=== PATIENT | female | born 1950 | race African-American/Black ===

== ENCOUNTER → 2017-04-19 | Outpatient (CLI) | payer MEDICARE ==
--- NOTE | 2017-04-19 12:16 | BD ---
EXAMINATION TYPE: MG DEXA axial skeleton. DATE OF EXAM: 04/19/2017 COMPARISON: NONE CLINICAL HISTORY: Postmenopausal female. Osteoporosis screening. Height: 5'1 Weight: 140 FRAX RISK QUESTIONS: Alcohol (3 or more units per day): no Family History (Parent hip fracture): no Glucocorticoids (More than 3mos): no (Ex: prednisone, prednisolone, methylprednisolone, dexamethasone, and hydrocortisone). History of Fracture in Adulthood: no Secondary Osteoporosis: 1. Type 1 Diabetes: no 2. Hyperthyroidism: no 3. Menopause before 45: no 4. Malnutrition: no 5. Chronic liver disease: no Rheumatoid Arthritis: no Current Tobacco Use: no RISK FACTORS HISTORY OF: Postmenopausal woman: MEDICATIONS: Additional Medications: cholesterol Additional History: EXAM MEASUREMENTS: Bone mineral densitometry was performed using the [employer] System. Bone mineral density as measured about the Lumbar spine is: ----- L1-L4(G/cm2): 1.030 T Score Values are as follows: ----- L2: -1.9 ----- L3: -1.4 ----- L4: -1.1 ----- L1-L4:-1.7 Bone mineral density about the R hip (g/cm2): 1.031 Bone mineral density about the L hip (g/cm2): 1.007 T Score values are as follows: -----R Neck: 0.0 -----L Neck: -0.2 -----R Total: 0.1 -----L Total: 0.3 IMPRESSION: Normal (Values between +1 and -1 indicate normal bone mass). Consider repeating this study in 5 year s or sooner if there is some new clinical indication. NOTE: T-SCORE=SD OF THE YOUNG ADULT MEAN.
--- NOTE | 2017-04-20 12:08 | MM ---
Reason for exam: screening (asymptomatic). History: Patient is postmenopausal. Benign excisional biopsy of the right breast, 2016. Took estrogen for 2 years. Physical Findings: A clinical breast exam by your physician is recommended on an annual basis and results should be correlated with mammographic findings. MG 3D Screening Mammo W/Cad Bilateral CC and MLO view(s) were taken. There are scattered fibroglandular densities. Previous mammotome biopsy in the right breast. There is no discrete abnormality. ASSESSMENT: Benign, BI-RAD 2 RECOMMENDATION: Routine screening mammogram of both breasts in 1 year.
== END | disposition home or self-care (01) ==
LOC: RADMAMWWP 07:23
PROVIDERS: ATTEND Family Medicine
DX: Z12.31 Encounter for screening mammogram for malignant neoplasm of breast (principal); Z78.0 Asymptomatic menopausal state
CPT/HCPCS: 77063; 77067; 77080

== ENCOUNTER → 2019-01-25 | Outpatient (CLI) | payer MEDICARE ==
--- NOTE | 2019-01-26 15:02 | US ---
EXAMINATION TYPE: US carotid duplex BILAT DATE OF EXAM: 01/25/2019 COMPARISON: NONE CLINICAL HISTORY: R09.89 carotid bruit. Pt states physician heard possible bruit EXAM MEASUREMENTS: RIGHT: Peak Systolic Velocity (PSV) cm/sec ----- Right CCA: 100.7 ----- Right ICA: 116.0 ----- Right ECA: 109.5 ICA/CCA ratio: 1.2 RIGHT: End Diastole cm/sec ----- Right CCA: 22.6 ----- Right ICA: 46.1 ----- Right ECA: 22.8 LEFT: Peak Systolic Velocity (PSV) cm/sec ----- Left CCA: 87.5 ----- Left ICA: 78.7 ----- Left ECA: 96.3 ICA/CCA ratio: 0.9 LEFT: End Diastole cm/sec ----- Left CCA: 22.6 ----- Left ICA: 31.4 ----- Left ECA: 13.8 VERTEBRALS (direction of flow): Right Vertebral: Antegrade Left Vertebral: Antegrade Rhythm: Normal No significant stenosis seen IMPRESSION: Mild degree of grayscale atheromatous plaquing with no sonographically evident hemodynam ically significant stenosis within either visualized carotid arterial system. Criteria for Assigning % of Stenosis / Diameter reduction (Estimation based on the indirect measurements of the internal carotid artery velocities (ICA PSV). 1. Normal (no stenosis)=ICA PSV < 125 cm/s: ratio < 2.0: ICA EDV<40 cm/s. 2. Less than 50% stenosis=ICA PSV < 125 cm/s: ratio < 2.0: ICA EDV<40 cm/s. 3. 50 to 69% stenosis=ICA PSV of 125 to 230 cm/s: ration 2.0 ? 4.0: ICA EDV 40-100 cm/s. 4. Greater than 70% stenosis to near occlusion= ICA PSV > 230 cm/s: ratio > 4.0: ICA EDV > 100 cm/s. 5. Near occlusion= ICA PSV velocities may be low or undetectable: variable ratio and ICA EDV. 6. Total occlusion=unable to detect flow.
== END | disposition home or self-care (01) ==
LOC: RADUSWWP 16:50
PROVIDERS: ATTEND Family Medicine
DX: R09.89 Other specified symptoms and signs involving the circulatory and respiratory systems (principal)
CPT/HCPCS: 93880

== ENCOUNTER → 2020-06-01 | Outpatient (CLI) | payer MEDICARE ==
--- NOTE | 2020-06-01 10:32 | P.STRESS ---
- Stress Test Note Stress Test Results/Findings: Exam Performed: stress echo exercise Exam Date: 06/01/20 Reason for Exam: Abnormal EKG Height: 5 ft 2 in Weight: 147 kg Protocol: Rai Stage: III Duration of Exercise: 7:09 Resting Heart Rate: 74 Resting Blood Pressure: 124/73 Maximum Achieved Heart Rate: 156 Maximum Achieved Blood Pressure: 194/70 85% PMHR: 128 100% PMHR: 151 METS: Technologist Comment: Stress Test Results/Findings: This is a 69-year-old female being evaluated for cardiac status. Because of abnormal EKG patient also has diabetes and hypercholesterolemia. Stress data: Baseline EKG showed sinus rhythm with normal TX interval and QRS duration with occasional PVCs. Blood pressure at rest is 124/73 with pulse rate of 74. Patient walked on the Rai protocol for 7 minutes achieving a maximal heart rate of 156 with a blood pressure of 1 9470. EKGs taken during and after exercise did not reveal any significant changes from the baseline. He she did not experience any chest pain. Echo data: Baseline echo images showed normal wall motion and thickening. Exercise echo images showed augmentation of wall motion and thickening in all the segments. Final impression: #1. Negative stress test #2. Negative stress echo.
--- NOTE | 2020-06-05 10:43 | ECHOF ---
Referral Reason:E78.5, R94.31, E11.9 MEASUREMENTS -------- HEIGHT: 157.5 cm WEIGHT: 66.7 kg BP: RVIDd: 2.9 cm (< 3.3) IVSd: 1.1 cm (0.6 - 1.1) LVIDd: 3.8 cm (3.9 - 5.3) LVPWd: 1.1 cm (0.6 - 1.1) IVSs: 1.7 cm LVIDs: 2.5 cm LVPWs: 1.6 cm LAESV Index (A-L): 16.56 ml/m Ao Diam: 3.0 cm (2.0 - 3.7) AV Cusp: 2.1 cm (1.5 - 2.6) LA Diam: 3.4 cm (2.7 - 3.8) MV EXCURSION: 13.117 mm (> 18.000) MV EF SLOPE: 40 mm/s (70 - 150) EPSS: 0.3 cm MV E Santhosh: 0.59 m/s MV DecT: 222 ms MV A Santhosh: 0.97 m/s MV E/A Ratio: 0.60 RAP: 5.00 mmHg RVSP: 26.50 mmHg FINDINGS -------- Sinus rhythm. This was a technically good study. The left ventricular size is normal. Left ventricular wall thickness is normal. Overall left vent ricular systolic function is normal with, an EF between 55 - 60 %. The diastolic filling pattern is normal for the age of the patient 14.87. The right ventricle is normal in size. Normal LA size by volume 22+/-6 ml/m2. The right atrial size is normal. Interatrial and interventricular septum intact. The aortic valve is trileaflet and appears structurally normal. There is no evidence of aortic regu rgitation. There is no evidence of aortic stenosis. No mitral regurgitation. Mild tricuspid regurgitation present. There is no evidence of pulmonary hypertension. The right v entricular systolic pressure, as measured by Doppler, is 26.50mmHg. There is no pulmonic regurgitation present. The aortic root size is normal. Normal inferior vena cava with normal inspiratory collapse consistent with estimated right atrial pre ssure of 5 mmHg. There is no pericardial effusion. CONCLUSIONS -------- 1. The left ventricular size is normal. 2. Left ventricular wall thickness is normal. 3. Overall left ventricular systolic function is normal with, an EF between 55 - 60 %. 4. The diastolic filling pattern is normal for the age of the patient 14.87 5. Mild tricuspid regurgitation present. SPECIALTY SALES CONSULTANT: Frances Keita RDCS
== END | disposition home or self-care (01) ==
LOC: RADECHMAIN 08:22
PROVIDERS: ATTEND Family Medicine
DX: R94.31 Abnormal electrocardiogram [ECG] [EKG] (principal)
CPT/HCPCS: 93306; 93351

== ENCOUNTER → 2021-01-12 | Outpatient (CLI) | payer MEDICARE ==
--- NOTE | 2021-01-14 14:09 | MM ---
Reason for exam: screening (asymptomatic). Last mammogram was performed 2 years and 7 months ago. History: Patient is postmenopausal. Benign excisional biopsy of the right breast, 2016. Took hormonal contraceptives for 4 years. Took estrogen for 2 years. Physical Findings: A clinical breast exam by your physician is recommended on an annual basis and results should be correlated with mammographic findings. MG 3D Screening Mammo W/Cad Bilateral CC and MLO view(s) were taken. Prior study comparison: June 04, 2018, bilateral MG 3d screening mammo w/cad. April 19, 2017, bilateral MG 3d screening mammo w/cad. There are scattered fibroglandular densities. Previous mammotome biopsy in the right breast. No significant changes when compared with prior studies. ASSESSMENT: Benign, BI-RAD 2 RECOMMENDATION: Routine screening mammogram of both breasts in 1 year.
== END | disposition home or self-care (01) ==
LOC: RADMAMWWP 10:56
PROVIDERS: ATTEND Family Medicine
DX: Z12.31 Encounter for screening mammogram for malignant neoplasm of breast (principal); Z78.0 Asymptomatic menopausal state
CPT/HCPCS: 77063; 77067

== ENCOUNTER → 2022-01-14 | Outpatient (CLI) | payer MEDICARE ==
--- NOTE | 2022-01-17 08:25 | MM ---
Reason for Exam: Screening (asymptomatic). Last screening mammogram was performed 12 month(s) ago. Patient History: Menarche at age 16. First Full-Term at age 19. Postmenopausal. Patient used Estrogen for 2 years. Patient used Hormonal Contraceptives for 4 years. 2016, Benign Excisional Biopsy on the right side. Maternal cousin had breast cancer. Risk Values: Tonie 5 year model risk: 1.4%. NCI Lifetime model risk: 3.8%. Prior Study Comparison: 04/19/2017 Bilateral Screening Mammogram, [facility]. 06/04/2018 Bilateral Screening Mammogram, [facility]. 01/12/2021 Bilateral Screening Mammogram, [facility]. Tissue Density: There are scattered fibroglandular densities. Findings: Analyzed By CAD. There is no suspicious group of microcalcifications or new suspicious mass in either breast. Previous mammotome biopsy in the right breast. No significant change from prior exams. Overall Assessment: Benign, BI-RAD 2 Management: Screening Mammogram of both breasts in 1 year. A clinical breast exam by your physician is recommended on an annual basis and results should be correlated with mammographic findings. Electronically signed and approved by: Maykel Pham D.O.
== END | disposition home or self-care (01) ==
LOC: RADMAMWWP 07:55
PROVIDERS: ATTEND Family Medicine
DX: Z12.31 Encounter for screening mammogram for malignant neoplasm of breast (principal); Z78.0 Asymptomatic menopausal state; Z80.3 Family history of malignant neoplasm of breast; Z98.890 Other specified postprocedural states
CPT/HCPCS: 77063; 77067

== ENCOUNTER → 2023-02-28 | Outpatient (CLI) | payer MEDICARE ==
--- NOTE | 2023-03-02 22:29 | MM ---
Reason for Exam: Screening (asymptomatic). Last mammogram was performed 1 year(s) and 1 month(s) ago. Patient History: Menarche at age 16. First Full-Term at age 19. Postmenopausal. Patient used Estrogen for 2 years. Patient used Hormonal Contraceptives for 4 years. 2016, Benign Excisional Biopsy on the right side. Maternal cousin had breast cancer. Risk Values: Tonie 5 year model risk: 1.4%. NCI Lifetime model risk: 3.6%. Prior Study Comparison: 06/04/2018 Bilateral Screening Mammogram, [facility]. 01/12/2021 Bilateral Screening Mammogram, [facility]. 01/14/2022 Bilateral MG 3D screening mammo w/cad, [facility]. Tissue Density: There are scattered fibroglandular densities. Findings: Analyzed By CAD. There is no suspicious group of microcalcifications or new suspicious mass in either breast. Overall Assessment: Negative, BI-RAD 1 Management: Screening Mammogram of both breasts in 1 year. . Patient should continue monthly self-breast exams. A clinical breast exam by your physician is recommended on an annual basis. This exam should not preclude additional follow-up of suspicious palpable abnormalities. Note on Tonie scores and lifetime risk: 1. A Tonie score greater than 3% is considered moderate risk. If this is the case, consider specialist referral to assess eligibility for a risk reducing agent. 2. If overall lifetime risk for the development of breast cancer is 20% or higher, the patient may qualify for future screening with alternating mammogram and breast MRI. Electronically signed and approved by: Janell Lilly M.D. Radiologist
== END | disposition home or self-care (01) ==
LOC: RADMAMWWP 15:57
PROVIDERS: ATTEND Family Medicine
DX: Z12.31 Encounter for screening mammogram for malignant neoplasm of breast (principal); Z78.0 Asymptomatic menopausal state; Z80.3 Family history of malignant neoplasm of breast
CPT/HCPCS: 77063; 77067

== ENCOUNTER → 2023-04-13 | Outpatient (CLI) | payer MEDICARE ==
--- NOTE | 2023-04-13 13:28 | XR ---
EXAMINATION TYPE: XR chest 2V DATE OF EXAM: 04/13/2023 10:32 AM CLINICAL INDICATION:Female, 72 years old with history of R63.4 abnormal weight loss; [facility] COMPARISON: Chest radiographs from 04/13/2023. TECHNIQUE: XR chest 2V Frontal and lateral views of the chest. FINDINGS: Lungs/Pleura: There is no evidence of pleural effusion, focal consolidation, or pneumothorax. Pulmonary vascularity: Unremarkable. Heart/mediastinum: Cardiomediastinal silhouette is unremarkable. Musculoskeletal: No acute osseous pathology. Other findings: None IMPRESSION: No acute cardiopulmonary disease/process.
== END | disposition home or self-care (01) ==
LOC: RADXRMAIN 10:16
PROVIDERS: ATTEND Family Medicine
DX: R63.4 Abnormal weight loss (principal)
CPT/HCPCS: 71046

== ENCOUNTER → 2024-04-11 | Outpatient (CLI) | payer MEDICARE ==
--- NOTE | 2024-04-11 08:17 | MM ---
Reason for Exam: Screening (asymptomatic). Last mammogram was performed 1 year(s) and 1 month(s) ago. Patient History: Menarche at age 16. First Full-Term at age 19. Postmenopausal. Patient used Estrogen for 2 years. Patient used Hormonal Contraceptives for 4 years. 2016, Benign Excisional Biopsy on the right side. Maternal cousin had breast cancer. Maternal cousin had breast cancer, age 45. Risk Values: Tonie 5 year model risk: 1.4%. NCI Lifetime model risk: 3.2%. Prior Study Comparison: 01/12/2021 Bilateral Screening Mammogram, [facility]. 01/14/2022 Bilateral MG 3D screening mammo w/cad, [facility]. 02/28/2023 Bilateral MG 3D screening mammo w/cad, [facility]. Tissue Density: The breasts are almost entirely fatty. Findings: Analyzed By CAD. Right breast biopsy clip. Right breast: There is no suspicious group of microcalcifications or new suspicious mass. Left breast: There is no suspicious group of microcalcifications or new suspicious mass. Overall Assessment: Negative, BI-RAD 1 Management: Screening Mammogram of both breasts in [address] [facility] will attempt to contact patient to return for supplemental views and ultrasound if indicated. Patient should continue monthly self-breast exams. A clinical breast exam by your physician is recommended on an annual basis. This exam should not preclude additional follow-up of suspicious palpable abnormalities. Note on Tonie scores and lifetime risk: 1. A Tonie score greater than 3% is considered moderate risk. If this is the case, consider specialist referral to assess eligibility for a risk reducing agent. 2. If overall lifetime risk for the development of breast cancer is 20% or higher, the patient may qualify for future screening with alternating mammogram and breast MRI. [facility], , 04/11/2024 8:15 AM. Electronically signed and approved by: Tayo Mehta DO
== END | disposition home or self-care (01) ==
LOC: RADMAMWWP 07:42
PROVIDERS: ATTEND Family Medicine
DX: Z12.31 Encounter for screening mammogram for malignant neoplasm of breast (principal); R92.313 Mammographic fatty tissue density, bilateral breasts; Z78.0 Asymptomatic menopausal state; Z80.3 Family history of malignant neoplasm of breast
CPT/HCPCS: 77063; 77067

== ENCOUNTER → 2024-05-20 | Outpatient (CLI) | payer MEDICARE ==
--- NOTE | 2024-05-20 09:59 | BD ---
EXAMINATION TYPE: Axial Bone Density DATE OF EXAM: 05/20/2024 CLINICAL HISTORY: 73 years old Female. ICD-10 CODE: Z78.0 Asymptomatic menopausal state , Additional History: Height: 61.5" Weight: 138lbs FRAX RISK QUESTIONS: Alcohol (3 or more units per day): No Family History (Parent hip fracture): Yes, father Glucocorticoids (More than 3mos): No (Ex: prednisone, prednisolone, methylprednisolone, dexamethasone, and hydrocortisone). History of Fracture in Adulthood: No Secondary Osteoporosis: 1. Type 1 Diabetes: No 2. Hyperthyroidism: No 3. Menopause before 45: No 4. Malnutrition: No 5. Chronic liver disease: No Rheumatoid Arthritis: No Current Tobacco Use: No RISK FACTORS HISTORY OF: Hip Fracture (Right/Left): No Spine Fracture: No History of Wrist Fracture: No Surgery to Spine/Hip(right/left)/Wrist (right/left): No MEDICATIONS: Thyroid Medications: No Osteoporosis Medications: No EXAM MEASUREMENTS: Bone mineral densitometry was performed using the [employer] System. Bone mineral density as measured about the Lumbar spine is: ----- L1-L4(G/cm2): 1.003 T Score Values are as follows: ----- L1: -2.6 ----- L2: -1.9 ----- L3: -1.5 ----- L4: -0.5 ----- L1-L4: -1.5 Z Score Values are as follows: ----- L1: -1.5 ----- L2: -0.7 ----- L3: -0.4 ----- L4: 0.6 ----- L1-L4: -0.4 Bone mineral density has: decreased -0.9% since study of: 05/16/2022 Bone mineral density about the R hip (g/cm2): 1.021 Bone mineral density about the L hip (g/cm2): 1.102 T Score values are as follows: -----R Neck: -0.1 -----L Neck: 0.2 -----R Total: 0.1 -----L Total: 0.8 Z Score values are as follows: -----R Neck: 0.9 -----L Neck: 1.2 -----R Total: 0.8 -----L Total: 1.5 Bone mineral density has: decreased -0.1% since study of: 05/16/2022 FRAX%s: The graph provided illustrates a 4.8% chance for a major osteoporotic fx and a 0.9% chance fo r the hips probability for fx in 10 years time. IMPRESSION: Osteopenia (T Score between -2.5 and -1). There is slightly increased risk of fracture and the patient may be considered for treatment. Re-Screen 2-5 years. NOTE: T-SCORE=SD OF THE YOUNG ADULT MEAN. [facility], , 05/20/2024 9:57 AM
== END | disposition home or self-care (01) ==
LOC: RADBDWWP 09:16
PROVIDERS: ATTEND Family Medicine
DX: M81.0 Age-related osteoporosis without current pathological fracture (principal); M85.89 Other specified disorders of bone density and structure, multiple sites; Z78.0 Asymptomatic menopausal state
CPT/HCPCS: 77080